=== PATIENT | female | born 1990 | race Caucasian/White ===

== ENCOUNTER 2016-11-26 14:46 | Emergency (ER) | payer OTHER ==
[~2016-11-26 14:46] MED LIST: NAPROSYN250 M1 PO; NO MEDICATIONS; PHENERGAN12.5 MG PO
== END 2016-11-26 17:12 | disposition home or self-care (01) ==
LOC: CED 14:46
DX: S39.012A Strain of muscle, fascia and tendon of lower back, initial encounter (principal); V49.00XA Driver injured in collision with unspecified motor vehicles in nontraffic accident, initial encounter
CPT/HCPCS: 99284